=== PATIENT | male | born 1980 | race Caucasian/White ===

== ENCOUNTER 2021-02-25 17:00 | Outpatient (RCR) | payer OTHER, SELFPAY | END 2021-02-25 17:45 | disposition home or self-care (01) | LOC: PT.CARL 17:00 | PROVIDERS: Visit Provider Neurological Surgery | DX: M48.02 Spinal stenosis, cervical region (principal); M47.812 Spondylosis without myelopathy or radiculopathy, cervical region; M25.20 Flail joint, unspecified joint; M50.33 Other cervical disc degeneration, cervicothoracic region; M54.2 Cervicalgia | CPT/HCPCS: 20560; 97010; 97012; 97014; 97110; 97140; 97163; G0283 ==